=== PATIENT | female | born 1995 ===

== ENCOUNTER 2020-06-15 19:52 | Inpatient (IN) | payer OTHER ==
[~2020-06-15] VITALS: Ht 160 cm; Wt 118.2 kg
[2020-06-15 20:33] LABS: BASOPHILS ABSOLUTE AUTO 0.03 K/mm3 (0.00-0.23); BASOPHILS PERCENT AUTO 0 % (0-2); EOSINOPHILS ABSOLUTE AUTO 0.14 K/mm3 (0.00-0.68); EOSINOPHILS PERCENT AUTO 1 % (0-6); Hematocrit 40.5 % (33.0-51.0); Hemoglobin 13.5 g/dL (11.5-16.0); IMMATURE GRAN ABSOLUTE AUTO 0.06 K/mm3 (0.00-0.10); IMMATURE GRAN PERCENT AUTO 1 % (0-1); LYMPHOCYTES ABSOLUTE AUTO 2.13 K/mm3 (0.84-5.20); LYMPHOCYTES PERCENT AUTO 18 % (21-46); MONOCYTES ABSOLUTE AUTO 1.08 K/mm3 (0.16-1.47); MONOCYTES PERCENT AUTO 9 % (4-13); Mean Corpuscular HGB 29.8 pg (26.0-34.0); Mean Corpuscular HGB Conc 33.3 g/dL (31.5-36.5); Mean Corpuscular Volume 89 fL (80-100); Mean Platelet Volume 12.7 fL (9.1-12.4); NEUTROPHILS ABSOLUTE AUTO 8.42 K/mm3 (1.96-9.15); NEUTROPHILS PERCENT AUTO 71 % (41-73); Platelet Count 169 K/mm3 (150-400); RDW Coefficient Variation 14.1 % (11.7-14.2); RDW Standard Deviation 46.4 fL (35.1-46.3); Red Blood Cell Count 4.53 M/mm3 (3.80-5.20); White Blood Cell Count 11.86 K/mm3 (4.00-11.30)
[2020-06-15] MEDS ORDERED: PRENATAL TABLE1 EAC2 PO (21:26)
[2020-06-15] MEDS ORDERED: LEVSOD25 PO (21:27)
[2020-06-16 16:25] LABS: BASOPHILS ABSOLUTE AUTO 0.04 K/mm3 (0.00-0.23); BASOPHILS PERCENT AUTO 0 % (0-2); EOSINOPHILS ABSOLUTE AUTO 0.06 K/mm3 (0.00-0.68); EOSINOPHILS PERCENT AUTO 0 % (0-6); Hematocrit 41.7 % (33.0-51.0); Hemoglobin 13.9 g/dL (11.5-16.0); IMMATURE GRAN ABSOLUTE AUTO 0.04 K/mm3 (0.00-0.10); IMMATURE GRAN PERCENT AUTO 0 % (0-1); LYMPHOCYTES PERCENT AUTO 10 % (21-46); MONOCYTES ABSOLUTE AUTO 0.87 K/mm3 (0.16-1.47); MONOCYTES PERCENT AUTO 6 % (4-13); Mean Corpuscular HGB 30.2 pg (26.0-34.0); Mean Corpuscular HGB Conc 33.3 g/dL (31.5-36.5); Mean Corpuscular Volume 91 fL (80-100); Mean Platelet Volume 12.9 fL (9.1-12.4); NEUTROPHILS PERCENT AUTO 83 % (41-73); Platelet Count 156 K/mm3 (150-400); RDW Coefficient Variation 14.1 % (11.7-14.2); RDW Standard Deviation 46.6 fL (35.1-46.3); White Blood Cell Count 14.21 K/mm3 (4.00-11.30)
[2020-06-16 16:51] LABS: Alanine Aminotransfer (ALT/SGP 22 U/L (12-78); Albumin, Blood 2.8 g/dL (3.4-5.0); Albumin/Globulin Ratio 0.7 (0.8-1.8); Alk Phos 106 U/L (50-136); Anion Gap 9 mmol/L (6-16); Aspartate Aminotrans (AST/SGOT 24 U/L (12-37); Bilirubin, Total 0.2 mg/dL (0.1-1.0); Blood Urea Nitrogen 12 mg/dL (8-24); Bun/Creatinine Ratio 15.3 (12.0-20.0); CO2, Blood 21 mmol/L (21-32); Chloride, Blood 108 mmol/L (98-108); Creatinine, Blood 0.79 mg/dL (0.40-1.00); Globulin, Blood 4.1 g/dL (2.2-4.0); Glomerular Filtration Rate >60 (60-); Glucose, Blood 74 mg/dL (70-99); Potassium, Blood 3.6 mmol/L (3.5-5.5); Sodium, Blood 138 mmol/L (136-145); Total Protein, Blood 6.9 g/dL (6.4-8.2)
[2020-06-16 19:57] LABS: Creatinine, Urine Random 95.3 mg/dL (27.00-270.00); Protein, Urine Random 9.2 mg/dL (0.0-11.9); Protein/Creat Ratio, Ur Random 0.1
[2020-06-17 10:08] LABS: PCO2 Cord - Arterial 55.1 mmHg (40-50); pH Cord - Arterial 7.23 (7.28-7.35)
[2020-06-17 10:10] LABS: PCO2 Cord - Venous 41.5 mmHg (40-50); PO2 Cord - Venous 22.2 mmHg (28-32); pH Umbilical Cord - Venous 7.33 (7.26-7.35)
[2020-06-17 10:11] LABS: PO2 Cord - Arterial < 13 mmHg (16-20)
--- NOTE | 2020-06-17 10:24 | NUR ---
06/17/20 1024 Jessica Bobo 0946 DELIVERY FEMALE , UMBILICAL CORD SEGEMENT SENT WITH RT FOR CROD GASES, UMBILICAL CORD BLOOD COLLECTED FOR TYPE AND RH GIVEN TO RN, TAKEN TO [facility] FOR RESPIRATORY SUPPORT AND EVALUATION
--- NOTE | 2020-06-17 11:42 | NUR ---
1058: PT IN PACU. EPIDURAL RESTARTED WITH PREVIOUS SETTINGS PER DR. MAYERS. BOLUS BUTTON HIT TO HELP WITH PAIN RELIEF.
--- NOTE | 2020-06-18 | NUR ---
EPIDURAL TURNED OFF PER PT REQUEST, EPIDURAL CATHETER REMOVED
--- NOTE | 2020-06-18 02:14 | NUR ---
REPLACED PAS, SOAKED WITH SWEAT
--- NOTE | 2020-06-18 04:36 | NUR ---
PROVIDED PT WITH HEATING PAD TO HELP WITH ABD PAIN
[2020-06-18 06:04] LABS: Hemoglobin 10.4 g/dL (11.5-16.0); Mean Corpuscular HGB 29.7 pg (26.0-34.0); Mean Corpuscular HGB Conc 32.5 g/dL (31.5-36.5); Mean Corpuscular Volume 91 fL (80-100); Mean Platelet Volume 12.9 fL (9.1-12.4); Platelet Count 126 K/mm3 (150-400); RDW Coefficient Variation 14.4 % (11.7-14.2); RDW Standard Deviation 48.1 fL (35.1-46.3); White Blood Cell Count 17.64 K/mm3 (4.00-11.30)
--- NOTE | 2020-06-18 16:40 | NUR ---
RN ROUNDED TO HELP W/ . INSTRUCT/DEMO WIDENING LATCH, CORRECT POSITIONING, AND NIPPLE SHAPE AFTER FEEDS. INSTRUCTED PT ON FREQUENCY OF FEEDS, SUPPLY/DEMAND OF BREASTMILK, AND CLUSTER FEEDING. PT VERBALIZED UNDERSTANDING, DENIES ANY FURTHER QUESTIONS OR CONCERNS. FURTHER SUPPORT OFFERED IF PT DESIRES.
--- NOTE | 2020-06-18 17:48 | NUR ---
REPORT TO MARCELARN
--- NOTE | 2020-06-19 10:15 | NUR ---
PT GIVEN WRITTEN AND VERBAL DC INSTRUCTIONS. VERBALIZE UNDERSTANDING AND QUESTIONS ANSWERED. PT WILL FOLLOW UP WITH [facility] WITHIN A FEW WEEKS AND CALL PROVIDER IF ANY PROBLEMS OR CONCERNS EARLIER. SHE WILL ALSO FOLLOW UP SUNDAY HERE AT [facility] AT 1000 SCHEDULED WITH LAPELER SCARLETT.
[2020-06-19] MEDS ORDERED: IBUP800 PO (10:49)
[2020-06-19] MEDS ORDERED: Masophen500 MG PO (10:49)
[2020-06-19] MEDS ORDERED: COLACE100 MG PO (10:50)
[2020-06-19] MEDS ORDERED: OXYC5 PO (10:50)
== END 2020-06-19 11:20 | disposition home or self-care (01) | DRG 788 ==
LOC: OBS 19:52 → BC 20:02
PROVIDERS: Obstetrics & Gynecology; ADMIT Obstetrics & Gynecology
PROC: 3E0P7VZ Introduction of Hormone into Female Reproductive, Via Natural or Artificial Opening (ICD-10-PCS; 2020-06-15)
PROC: 3E033VJ Introduction of Other Hormone into Peripheral Vein, Percutaneous Approach (ICD-10-PCS; 2020-06-16)
PROC: 10907ZC Drainage of Amniotic Fluid, Therapeutic from Products of Conception, Via Natural or Artificial Opening (ICD-10-PCS; 2020-06-16)
PROC: 10H07YZ Insertion of Other Device into Products of Conception, Via Natural or Artificial Opening (ICD-10-PCS; 2020-06-16)
PROC: 10D00Z1 Extraction of Products of Conception, Low, Open Approach (ICD-10-PCS; principal; 2020-06-17 09:00)
PROC: 3E0234Z Introduction of Serum, Toxoid and Vaccine into Muscle, Percutaneous Approach (ICD-10-PCS; 2020-06-19)
DX: O48.0 Post-term pregnancy (principal); O33.9 Maternal care for disproportion, unspecified; O62.1 Secondary uterine inertia; O76 Abnormality in fetal heart rate and rhythm complicating labor and delivery; O13.4 Gestational [pregnancy-induced] hypertension without significant proteinuria, complicating childbirth; Z23 Encounter for immunization; Z3A.40 40 weeks gestation of pregnancy; Z37.0 Single live birth; O99.214 Obesity complicating childbirth; E66.01 Morbid (severe) obesity due to excess calories; Z88.0 Allergy status to penicillin; Z88.2 Allergy status to sulfonamides; Z87.891 Personal history of nicotine dependence
CPT/HCPCS: 36415; 51702; 80053; 82570; 82803; 84156; 85025; 85027; 86850; 86900; 86901; 90471; 90707; A9270; J1580; J1885; J2001; J2370; J2405; J2590; J2765; J3010; J7120; U0003

== ENCOUNTER → 2021-11-10 | Outpatient (CLI) | payer OTHER ==
[~2021-11-10] MED LIST: COLACE100 MG PO; IBUP800 PO; LEVSOD25 PO; Masophen500 MG PO; OXYC5 PO; PRENATAL TABLE1 EAC2 PO
== END | disposition home or self-care (01) ==
LOC: LAB 16:22 → LAB SHORT 16:22
PROVIDERS: Obstetrics & Gynecology
DX: Z01.419 Encounter for gynecological examination (general) (routine) without abnormal findings (principal)
CPT/HCPCS: G0123

== ENCOUNTER → 2022-03-06 | Outpatient (CLI) | payer OTHER ==
[2022-03-06 15:14] LABS: Source, Urine Clean Catch
[2022-03-06 15:19] LABS: Appearance, Urine Hazy (Clear); Bilirubin, Urine Neg (Neg); Blood, Urine 1+ (Neg); Color, Urine Yellow (P-Yellow); Glucose Qualitative, Urine Neg (Neg); Ketones, Urine Neg (Neg); Leukocyte Esterase, Urine Neg (Neg); Nitrite, Urine Neg (Neg); Protein, Urine Neg (Neg); Specific Gravity, Urine 1.025 (1.003-1.022); Urobilinogen, Urine NORM (Normal)
[2022-03-06 17:03] LABS: Amorphous Light (0-Heavy); Bacteria Mod /hpf; Mucus Mod (0-Heavy); Squamous Epithelial Cells Many /hpf (Few); White Blood Cells, Urine 0-2 /hpf (0-5)
[2022-03-07 11:30] LABS: Candida species (DNA Probe) Negative (NEGATIVE); G. vaginalis (DNA Probe) Negative (NEGATIVE); T. vaginalis (DNA Probe) Negative (NEGATIVE)
== END | disposition home or self-care (01) ==
LOC: LAB SHORT 14:12
PROVIDERS: Obstetrics & Gynecology
DX: N76.0 Acute vaginitis (principal); R30.9 Painful micturition, unspecified
CPT/HCPCS: 81001; 87480; 87510; 87660

== ENCOUNTER → 2024-02-25 | Outpatient (CLI) | payer OTHER | LOC: LAB 16:45 → LAB SHORT 16:45 | DX: O09.93 Supervision of high risk pregnancy, unspecified, third trimester (principal) | CPT/HCPCS: 87081; 87150 ==

== ENCOUNTER 2024-03-17 04:55 | Inpatient (IN) | payer OTHER ==
[~2024-03-17] VITALS: Ht 160 cm; Wt 118.8 kg
[2024-03-17] VITALS (16 sets, daily range): BP systolic 90–122; BP diastolic 51–88
[2024-03-17] MEDS ORDERED: Metoclopramide HCl 5MG / ML 2ML Vial IV SCH (05:15)
[2024-03-17] MEDS ORDERED: Citric Acid/Sodium Citrate 30 ML BTL PO SCH (05:15)
[2024-03-17] MEDS ORDERED: CEFAZOLIN SODIUM IV SCH (05:15)
[2024-03-17] MEDS ORDERED: NS IV SCH (05:15)
[2024-03-17] MEDS ORDERED: Lactated Ringer's 1,000 ML IV SCH ×3 (05:15→08:55)
[2024-03-17] MEDS ORDERED: CeFAZolin Sodium 3,000 MG in NS 100 ML IV SCH (05:25)
[2024-03-17 05:49] LABS: BASOPHILS ABSOLUTE AUTO 0.03 K/mm3 (0.00-0.23); BASOPHILS PERCENT AUTO 0 % (0-2); EOSINOPHILS ABSOLUTE AUTO 0.23 K/mm3 (0.00-0.68); EOSINOPHILS PERCENT AUTO 2 % (0-6); Hematocrit 38.3 % (33.0-51.0); Hemoglobin 12.8 g/dL (11.5-16.0); IMMATURE GRAN ABSOLUTE AUTO 0.04 K/mm3 (0.00-0.10); IMMATURE GRAN PERCENT AUTO 0 % (0-1); LYMPHOCYTES ABSOLUTE AUTO 2.63 K/mm3 (0.84-5.20); LYMPHOCYTES PERCENT AUTO 22 % (21-46); MONOCYTES ABSOLUTE AUTO 0.72 K/mm3 (0.16-1.47); MONOCYTES PERCENT AUTO 6 % (4-13); Mean Corpuscular HGB Conc 33.4 g/dL (31.5-36.5); Mean Corpuscular Volume 84 fL (80-100); Mean Platelet Volume 12.2 fL (9.1-12.4); NEUTROPHILS ABSOLUTE AUTO 8.51 K/mm3 (1.96-9.15); NEUTROPHILS PERCENT AUTO 70 % (41-73); Platelet Count 203 K/mm3 (150-400); RDW Coefficient Variation 14.3 % (11.7-14.2); RDW Standard Deviation 43.4 fL (35.1-46.3); Red Blood Cell Count 4.57 M/mm3 (3.80-5.20); White Blood Cell Count 12.16 K/mm3 (4.00-11.30)
[2024-03-17] MEDS ORDERED: FentaNYL Citrate 50 MCG/ML 2 ML Injection ONE (07:31)
[2024-03-17] MEDS ORDERED: Phenylephrine HCl 100 MCG/ML-NS 10MLSYR (1MG/10ML) ONE (07:32)
[2024-03-17] MEDS ORDERED: Oxytocin 10 Unit / ML Vial ONE ×2 (07:32→08:25)
[2024-03-17] MEDS ORDERED: Ketorolac Tromethamine 30mg Vial ONE (07:33)
[2024-03-17] MEDS ORDERED: Ondansetron HCl 2 MG / ML 2ML Vial ONE (07:51)
[2024-03-17] MEDS ORDERED: FentaNYL Citrate 50 MCG/ML 2 ML Injection IV PRN ×3 (08:40)
[2024-03-17] MEDS ORDERED: ePHEDrine Sulfate 50 MG/ML 1ML Injection IV SCH (08:40)
[2024-03-17] MEDS ORDERED: Ondansetron HCl 2 MG / ML 2ML Vial IV PRN ×2 (08:45→09:00)
[2024-03-17] MEDS ORDERED: DiphenhydrAMINE HCl 50 MG/ML 1ML Vial IV PRN (08:45)
[2024-03-17] MEDS ORDERED: HYDROmorphone HCl/Pf 1MG SYR IV PRN (08:45)
[2024-03-17] MEDS ORDERED: Naloxone HCl 0.4MG / ML 1ML Vial IV PRN (08:45)
[2024-03-17] MEDS ORDERED: Methylergonovine Maleate 0.2MG / ML 1ML Amp IM PRN (08:55)
[2024-03-17] MEDS ORDERED: Promethazine HCl 12.5 MG Supp PR PRN (08:55)
[2024-03-17] MEDS ORDERED: Promethazine HCl 25 MG Tab PO PRN (08:55)
[2024-03-17] MEDS ORDERED: Metoclopramide HCl 10 MG Tab PO PRN (08:55)
[2024-03-17] MEDS ORDERED: Measles/Mumps/Rubella Vaccine 0.5 ML Vial SC ONE (08:55)
[2024-03-17] MEDS ORDERED: Carboprost Tromethamine 250 MCG/ML 1ML Amp IM PRN (09:00)
[2024-03-17] MEDS ORDERED: Morphine Sulfate 4 MG/1 ML Injection IV PRN (09:00)
[2024-03-17] MEDS ORDERED: Acetaminophen 500 MG Tab PO PRN (09:00)
[2024-03-17] MEDS ORDERED: Magnesium Hydroxide Conc 10 ML UDC PO PRN (09:00)
[2024-03-17] MEDS ORDERED: Ketorolac Tromethamine 30mg Vial IV SCH (09:00)
[2024-03-17] MEDS ORDERED: Misoprostol 200 MCG Tab PR PRN (09:00)
[2024-03-17] MEDS ORDERED: Lanolin Cream TOP PRN (09:00)
[2024-03-17] MEDS ORDERED: OxyCODONE HCL 5 MG TAB PO PRN (09:05)
[2024-03-17] MEDS ORDERED: LR Oxytocin 20 Units 1,000 ML IV SCH (09:05)
[2024-03-17] MEDS ORDERED: OXYTOCIN/RINGER'S LACTATE 500 ML IV SCH (09:05)
[2024-03-17] MEDS ORDERED: DiphenhydrAMINE HCL 25 MG Cap PO PRN (09:05)
[2024-03-17] MEDS ORDERED: Simethicone 80 MG Chew PO PRN (09:05)
[2024-03-17] MEDS ORDERED: Rho(D) Immune Globulin 300 MCG / SYR IM ONE (09:10)
--- NOTE | 2024-03-17 11:01 | NUR ---
03/17/24 1101 Sharron Olson MALE DELIVERED AT 0804. 7 POUNDS 12 OUNCES. CORD BLOOD GIVEN TO SHAYLA GRISSOM.
[2024-03-17] MEDS ORDERED: Ketorolac Tromethamine 30mg Vial IV PRN (11:10)
[2024-03-17] MEDS ORDERED: Ibuprofen 400 MG Tab PO SCH (16:00)
[2024-03-17] MEDS ORDERED: Docusate Sodium 100 MG Cap PO SCH (21:00)
[2024-03-18 00:31] VITALS: BP 111/61
[2024-03-18] MEDS ORDERED: Citric Acid/Sodium Citrate 30 ML BTL PO SCH (05:15)
[2024-03-18] MEDS ORDERED: Levothyroxine Sodium 0.05 MG Tab PO SCH (06:00)
[2024-03-18 06:08] VITALS: BP 103/52
[2024-03-18 06:21] LABS: BASOPHILS ABSOLUTE AUTO 0.04 K/mm3 (0.00-0.23); BASOPHILS PERCENT AUTO 0 % (0-2); EOSINOPHILS PERCENT AUTO 2 % (0-6); Hematocrit 34.1 % (33.0-51.0); Hemoglobin 11.2 g/dL (11.5-16.0); IMMATURE GRAN ABSOLUTE AUTO 0.08 K/mm3 (0.00-0.10); IMMATURE GRAN PERCENT AUTO 1 % (0-1); LYMPHOCYTES ABSOLUTE AUTO 2.62 K/mm3 (0.84-5.20); LYMPHOCYTES PERCENT AUTO 21 % (21-46); MONOCYTES ABSOLUTE AUTO 0.84 K/mm3 (0.16-1.47); MONOCYTES PERCENT AUTO 7 % (4-13); Mean Corpuscular HGB 27.9 pg (26.0-34.0); Mean Corpuscular HGB Conc 32.8 g/dL (31.5-36.5); Mean Corpuscular Volume 85 fL (80-100); NEUTROPHILS ABSOLUTE AUTO 8.44 K/mm3 (1.96-9.15); NEUTROPHILS PERCENT AUTO 69 % (41-73); Platelet Count 178 K/mm3 (150-400); RDW Coefficient Variation 14.4 % (11.7-14.2); RDW Standard Deviation 44.3 fL (35.1-46.3); Red Blood Cell Count 4.02 M/mm3 (3.80-5.20); White Blood Cell Count 12.22 K/mm3 (4.00-11.30)
[2024-03-18 08:20] VITALS: BP 107/59
[2024-03-18] MEDS ORDERED: Prenatal Vit/FE Fumarate/FA 1 Tab PO SCH (09:00)
[2024-03-18 12:38] VITALS: BP 105/54
[2024-03-18 17:01] VITALS: BP 108/53
[2024-03-18 20:01] VITALS: BP 105/51
[2024-03-19 01:10] VITALS: BP 117/59
[2024-03-19 05:30] VITALS: BP 101/56
[2024-03-19 07:52] VITALS: BP 105/61
[2024-03-19 11:39] VITALS: BP 132/61
--- NOTE | 2024-03-19 11:41 | NUR ---
discharge instructions given, patient deny any further questions. bands matched and hugs removed
== END 2024-03-19 11:45 | disposition home or self-care (01) | DRG 785 ==
LOC: BC 04:55
PROVIDERS: Obstetrics & Gynecology; ADMIT Obstetrics & Gynecology
PROC: 10D00Z1 Extraction of Products of Conception, Low, Open Approach (ICD-10-PCS; principal; 2024-03-17 07:30)
PROC: 0UT70ZZ Resection of Bilateral Fallopian Tubes, Open Approach (ICD-10-PCS; 2024-03-17 07:30)
DX: O34.211 Maternal care for low transverse scar from previous cesarean delivery (principal); O99.214 Obesity complicating childbirth; Z3A.39 39 weeks gestation of pregnancy; Z37.0 Single live birth; Z30.2 Encounter for sterilization; Z88.0 Allergy status to penicillin; Z88.2 Allergy status to sulfonamides; O99.284 Endocrine, nutritional and metabolic diseases complicating childbirth; E03.9 Hypothyroidism, unspecified; E28.2 Polycystic ovarian syndrome; O99.62 Diseases of the digestive system complicating childbirth; K21.9 Gastro-esophageal reflux disease without esophagitis
CPT/HCPCS: 36415; 85025; 86850; 86900; 86901; 86923; 88302; A9270; J1885; J2371; J2405; J2590; J3010; J7120